=== PATIENT | male | born 2000 | race Caucasian/White ===

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

== ENCOUNTER 2020-01-28 13:03 | Emergency (ER) | payer OTHER ==
[~2020-01-28] VITALS: Ht 170.2 cm; Wt 72.7 kg
[2020-01-28 13:06] VITALS: BP 115/56
[2020-01-28] MEDS ORDERED: ACETAMINOPHEN 500 MG TABLET PO ONE (13:45)
[2020-01-28] MEDS ORDERED: LIDOCAINE/PF 1% 5 ML VIAL INJ ONE (13:45)
[2020-01-28] MEDS ORDERED: PERTUSS(ACELL),DIPH,TET VAC/PF 0.5 ML VIAL IM ONE (13:45)
[2020-01-28] MEDS ORDERED: BACITRACIN 0.9 GM PACKET OINTMENT TP ONE (13:45)
== END 2020-01-28 14:56 | disposition home or self-care (01) ==
LOC: EMS 13:05
DX: S51.811A Laceration without foreign body of right forearm, initial encounter (principal); F12.90 Cannabis use, unspecified, uncomplicated; W25.XXXA Contact with sharp glass, initial encounter; Y93.89 Activity, other specified; Y92.89 Other specified places as the place of occurrence of the external cause; Y99.8 Other external cause status
CPT/HCPCS: 12002; 90471; 90715; 99283; J2001; 99406

== ENCOUNTER 2020-02-05 13:11 | Emergency (ER) | payer OTHER ==
[~2020-02-05] VITALS: Ht 170.2 cm; Wt 66.1 kg
[2020-02-05] MEDS ORDERED: BACITRACIN 0.9 GM PACKET OINTMENT TP ONE (14:00)
[2020-02-05 14:15] VITALS: BP 131/89
== END 2020-02-05 14:17 | disposition home or self-care (01) ==
LOC: EMS 13:12
DX: S51.811D Laceration without foreign body of right forearm, subsequent encounter (principal); F12.90 Cannabis use, unspecified, uncomplicated; X58.XXXD Exposure to other specified factors, subsequent encounter
CPT/HCPCS: Z7502; Z7610

== ENCOUNTER 2021-11-27 22:48 | Emergency (ER) | payer OTHER ==
[~2021-11-27] VITALS: Ht 175.3 cm; Wt 79.5 kg
[2021-11-27] MEDS ORDERED: PERTUSS(ACELL),DIPH,TET VAC/PF 0.5 ML SYRINGE IM. ONE (23:30)
[2021-11-28 01:00] VITALS: BP 119/84
[2021-11-28] MEDS ORDERED: LIDOCAINE 1% 10 ML VIAL ID ONE (01:00)
[2021-11-28] MEDS ORDERED: LIDOCAINE/PF 1% 5 ML VIAL ID ONE (01:15)
== END 2021-11-28 01:41 | disposition home or self-care (01) ==
LOC: EMS 22:49
DX: S61.213A Laceration without foreign body of left middle finger without damage to nail, initial encounter (principal); F12.90 Cannabis use, unspecified, uncomplicated; W26.0XXA Contact with knife, initial encounter; Y93.89 Activity, other specified; Y92.89 Other specified places as the place of occurrence of the external cause; Y99.0 Civilian activity done for income or pay
CPT/HCPCS: 12001; 73130; 90471; 90715; 99283; J2001